=== PATIENT | male | born 1980 | race Caucasian/White ===

== ENCOUNTER 2021-11-24 08:57 | Emergency (ER) | payer OTHER ==
[2021-11-24] MEDS ORDERED: Ondansetron ODT 4 MG TAB ONE (09:28)
[2021-11-24] MEDS ORDERED: Acetaminophen/Codeine 30-300mg Tablet ONE (09:28)
[2021-11-24] MEDS ORDERED: Amoxicillin/Potassium Clav 875 MG TAB ONE (09:28)
== END 2021-11-24 09:45 | disposition home or self-care (01) ==
LOC: NAV ERS 08:57
DX: K08.89 Other specified disorders of teeth and supporting structures (principal); I10 Essential (primary) hypertension; F17.210 Nicotine dependence, cigarettes, uncomplicated
CPT/HCPCS: 99282; Q0162